=== PATIENT | male | born 1950 | race Caucasian/White ===

== ENCOUNTER 2024-12-14 19:26 | Emergency (ER) | payer MEDICARE, MEDICAID, SELFPAY ==
[2024-12-14 19:28] VITALS: BMI 41.1
--- NOTE | 2024-12-14 19:29 | EKG_ITS ---
[facility] (Formerly [facility]) Test Date: 2024-12-14 Pat Name: JOSE MIGUEL WASHINGTON Department: Room: - Gender: Male [employer] Room Attendant: : 1950 Requested By: ED Temporary Provider Order Number: [id number] Reading MD: ED Temporary Provider Measurements Intervals [place] Rate: 103 P: 51 AK: 154 QRS: 36 QRSD: 84 T: 26 QT: 331 QTc: 435 Interpretive Statements SINUS TACHYCARDIA LOW QRS VOLTAGE IN PRECORDIAL LEADS [QRS DEFLECTION < 1.0 mV IN CHEST LEADS] ABNORMAL RHYTHM ECG Compared to ECG 10/17/2023 10:00:57 Low QRS voltage now present ST (T wave) deviation no longer present /store/S0/[id number]/ecg/[id number].pdf
[2024-12-14 19:35] VITALS: BP 139/83; PULSE 110; RESP 20; TEMP 36.6; O2SAT 97
--- NOTE | 2024-12-14 19:46 | EDRME_ITS ---
Rapid Medical Screening Exam [facility] Arrival date/time: 12/14/24 19:26 Chief Complaint: Chest Pain Vital signs: Vital Signs Temperature 97.8 F 12/14/24 19:35 Pulse Rate 110 H 12/14/24 19:35 Respiratory Rate 20 12/14/24 19:35 Blood Pressure 139/83 H 12/14/24 19:35 Pulse Oximetry (%) 97 12/14/24 19:35 Oxygen Delivery Method Room Air 12/14/24 19:35 E Narrative: Left-sided chest pain, mild shortness of breath worsening over the past 4-5 days. History of PE, DVT. Patient takes Xarelto, reports compliance with med Exam: Well-appearing, no acute distress Clinical Impression: Chest pain
--- NOTE | 2024-12-14 19:47 | XR_ITS ---
EXAMINATION: PA chest single view TECHNIQUE: Upright PA chest single view Date and time: December 14, 20242010 hours INDICATIONS: Left-sided chest pain shortness of breath worse over the last 5 days. FINDINGS: Minimal prominence left ventricle Mild vascular congestion. Accentuation bronchovascular markings. No lobar pneumonia. No meir pulmonary edema IMPRESSION: Mild vascular congestion Basilar bronchitis pattern
--- NOTE | 2024-12-14 19:48 | XR_ITS ---
Examination: CTA chest with intravenous contrast 2-D reconstructions 3-D reconstructions, vascular Date and time of exam: December 14, 2024, 2113 hours INDICATIONS: Chest pain shortness of breath, history blood clots CTDI: vol (mGy) 26.2 DLP: (mGycm) 576 Technique: Multiple axial sections of the thorax have been obtained. 3 mm slice thickness, from below the hemidiaphragms to above the apices of the lungs. Mediastinal and lung density settings have been obtained. 2-D sagittal and coronal reconstructions. 3-D angiographic renderings, 3-D volume renderings, 3D post processing, vascular maximum intensity projections obtained. Contrast administered is 100 cc Isovue 370. Low dose protocols were performed. One or more of the following dose reduction techniques were used; automated exposure control, adjustment of the mA and/or KV according to patient size, use of iterative reconstruction technique. Findings: No thoracic aortic aneurysmal dilatation or dissection Pulmonary artery segments are not enlarged. No pulmonary artery emboli No paratracheal tracheobronchial or bronchopulmonary adenopathy No pneumonia or pulmonary edema or pleural disease No visualized liver or splenic lesion No gallstones No pancreatic or adrenal mass Moderate renal scar formation no hydronephrosis IMPRESSION: Negative for pulmonary artery emboli Negative for thoracic aortic aneurysm or dilatation No pneumonia or pulmonary edema or pleural disease
[2024-12-14 20:00] LABS: Basophils # (Auto) 0.1 Thou/mm3 (0.0-0.2); Basophils % (Auto) 1 % (0-2.5); Eosinophils # (Auto) 0.3 Thou/mm3 (0.0-0.5); Eosinophils % (Auto) 2 % (0-10); Hematocrit 42.0 % (41.0-53.0); Hemoglobin 14.0 g/dL (13.5-16.0); Immature Granulocytes Auto 0.02 Thou/mm3 (0.00-0.00); Lymphocytes # (Auto) 3.9 Thou/mm3 (1.0-4.8); Lymphocytes % (Auto) 30 % (10-50); Mean Corpuscular HGB Conc 33.3 g/dl (31.0-37.0); Mean Corpuscular Hemoglobin 28.7 pg (25.0-35.0); Mean Corpuscular Volume 86 fL (80-100); Monocytes # (Auto) 1.3 Thou/mm3 (0.0-0.8); Monocytes % (Auto) 10 % (0-12); Neutrophils # (Auto) 7.3 Thou/mm3 (1.8-7.7); Neutrophils % (Auto) 57 % (37-80); Nucleated Red Blood Cell # 0.00 Thou/mm3 (0.00-0.00); Nucleated Red Blood Cell % 0 /100 WBC (0); Platelet Count 293 Thou/mm3 (140-440); RDW Standard Deviation 44.8 fL (35.1-43.9); Red Blood Count 4.87 Miln/mm3 (4.50-5.90); White Blood Count 12.9 Thou/mm3 (3.8-10.6)
[2024-12-14 20:17] LABS: INR 1.1 (0.9-1.3); Partial Thromboplastin Time 36.2 Seconds (22.0-36.0); Prothrombin Time 11.9 Seconds (9.0-12.2)
[2024-12-14 20:20] LABS: B-Type Natriuretic Peptide 41 pg/mL (0-100)
[2024-12-14 20:22] LABS: Alanine Aminotransferase 15 U/L (10-49); Albumin, Serum 4.5 gm/dL (3.4-4.8); Albumin/Globulin Ratio 1.6 (1.2-2.2); Alkaline Phosphatase 75 U/L (46-116); Anion Gap 7 (7-16); Aspartate Amino Transferase 18 U/L (0-34); BUN/Creatinine Ratio 16 Ratio (12-20); Bilirubin,Total 0.2 mg/dL (0.3-1.2); Blood Urea Nitrogen 16 mg/dL (9-23); Calcium 9.5 mg/dL (8.3-10.6); Calcium (Corrected) 9.5 mg/dL (8.5-10.1); Carbon Dioxide 28.2 mMol/L (20.0-31.0); Chloride 106 mMol/L (98-107); Creatinine (Component) 1.0 mg/dL (0.6-1.3); Estimated Creatinine Clearance 93.2 mL/min (>60); Globulin 2.8 gm/dL (2.3-3.5); Glucose 108 mg/dL (74-106); Magnesium 2.1 mg/dL (1.6-2.6); Osmolality,Calculated 283 (275-295); Potassium 3.8 mMol/L (3.4-5.1); Sodium 141 mMol/L (136-145); Total Protein 7.3 gm/dL (5.7-8.2); Troponin I < 0.002 ng/mL (0.0-0.045); eGFR > 60 See Note
[2024-12-14 20:30] VITALS: BP 125/80; PULSE 98; RESP 20; TEMP 36.6; O2SAT 97
--- NOTE | 2024-12-14 20:39 | EDNOTE_ITS ---
ED Chest Pain RME/HPI General Chief Complaint: Chest Pain Stated Complaint: CHEST PAIN X 4 DAYS Time Seen by Provider: 12/14/24 20:26 Arrival date/time: 12/14/24 19:26 RME / HPI RME / HPI narrative: Left-sided chest pain, mild shortness of breath worsening over the past 4-5 days. History of PE, DVT. Patient takes Xarelto, reports compliance with med Dr. Dunn?s Main ED Evaluation: 74yo male with a history of PE on Xarelto presents to the ED for complaints of left-sided chest pain and mild shortness of breath x 4-5 days. No radiation or migration of pain. Patient states he has been taking his Xarelto as prescribed. Denies any fever, chills, abdominal pain, N/V, or any other associated symptoms. NKA. Related Data Home Medications ?Medication ?Instructions ?Recorded ?Confirmed levothyroxine 150 mcg tablet 150 mcg PO QDAY 10/03/22 10/03/22 lisinopril 20 1 tab PO QDAY 10/03/2210/03 mg-hydrochlorothiazide 25 mg tablet Previous Rx's ?Medication ?Instructions ?Recorded compress.stocking,knee,reg,lrg #2 ea 10/03/22 (Relief Knee Close Toe Stocking) rivaroxaban 15 mg (42)-20 mg (9) See Rx Instructions P O .COMPLEX 10/03/22 tablets in a starter pack (Xarelto #51 tabs DVT-PE Treatment 30-Day Starter) Allergies Allergy/AdvReac Type Severity Reaction Status Date / Time No Known Allergies Allergy Verified 12/14/24 19:27 Review of Systems Review of Systems Systems Reviewed: All systems reviewed, normal except as documented Past Medical History Past Medical History CARDIAC: Positive Hypertension; Negative Cardiac Disorders or Congestive Heart Failure RESPIRATORY: Positive Pulmonary Embolism; Negative Chronic Obstructive Pulmonary Disease (COPD) or Asthma GENITOURINARY: Negative Renal Disease ENDOCRINE: Positive Endocrine Disorders, Hypothyroidism and Parathyroid Disease; Negative Diabetes Mellitus Type 1 or Diabetes Mellitus Type 2 HEMATOLOGIC: Positive Clotting Problems; Negative Sickle Cell Disease Social History SMOKING STATUS: Never smoker ED Exam Narrative Physical exam: Generally patient is alert and in no obvious distress, heart regular rate and rhythm, lungs clear to auscultation equal bilaterally, chest shows no wounds no crepitance no subcu air nontender to palpation, abdomen soft bowel sounds present nondistended nontender, skin is warm and dry, neurologic exam shows Noemy Coma Scale 15 Course Quality Measures none Orders Category Date Time Status CT Screening NOW Care 12/14/24 19:48 Active EKG (ED ONLY) *Do not use* NOW Care 12/14/24 19:29 Completed Insert IV NOW Care 12/14/24 20:[address] angio chest Stat Exams 12/14/24 19:48 Completed CXR [XR chest 1V] Stat Exams 12/14/24 19:47 Completed EKG (ED Only) Stat Exams 12/14/24 19:29 Draft BNP [B-Type Natriuretic Peptide] Stat Lab 12/14/24 19:53 Completed CBC Stat Lab 12/14/24 19:53 Completed CMP [Comprehensive Metabolic Panel] Stat Lab 12/14/24 19:53 Completed Magnesium Stat Lab 12/14/24 19:53 Completed Partial Thromboplastin Time Stat Lab 12/14/24 19:53 Completed Prothrombin Time with INR Stat Lab 12/14/24 19:53 Completed Troponin I Stat Lab 12/14/24 19:53 Completed Vital Signs Vital signs: Vital Signs Temperature 97.8 F 12/14/24 19:35 Pulse Rate 110 H 12/14/24 19:35 Respiratory Rate 20 12/14/24 19:35 Blood Pressure 139/83 H 12/14/24 19:35 Pulse Oximetry (%) 97 12/14/24 19:35 Oxygen Delivery Method Room Air 12/14/24 19:35 Chest Pain MDM Narrative MDM Narrative:: Scribe Attestation: 12/14/24 Safia Keith am scribing for and in the presence of Dr. Dunn. Chest x-ray is unremarkable. EKG shows sinus tachycardia at a rate of 103 without ischemic change. Patient states that he has a well-established history of always been tachycardic. Patient does have a history of pulmonary emboli dating back 2 years ago. He is currently on Xarelto. CT scan of the chest with IV contrast showed no evidence of pulmonary emboli or acute disease process. Heart score is 3. Troponin is not elevated for chest pain that has been going on for 3 to 4 days. Patient is stable for discharge. Follow-up with his doctor. Continue current medications. Return to ER as needed or if condition worsens such as pain becomes more severe or more frequent or lasts longer. I interpreted all labs. Patient data External records reviewed:: [facility] previous records (Per chart review, patient was seen here on 10/17/23 for chest pain.) Clinical information provided by:: patient Social determinants that could affect healthcare access:: none Patient has the following chronic illnesses:: PE on Xarelto How is presenting disease/condition affected by chronic disease/condition?: uneffected by Evaluation data The following diagnostics were reviewed and interpreted by me:: lab results, radiology exam(s) and EKG tracing(s) Lab and/or radiology exams considered but not ordered:: none Interpretation Summary: [facility] Report Signed Patient: JOSE MIGUEL WASHINGTON [facility]. Record#: [id number] Birthdate: 1950 Age/Sex: 74 / M Location: [facility] Attending Dr: Ordering Physician: Antelmo Alcocer PA-C Date of Service: 12/14/24 Procedure(s): XR chest 1V Accession Number(s): [id number] cc: Stewart Akbar MD; Antelmo Alcocer PA-C; Jorje Verma PA-C~ EXAMINATION: PA chest single view TECHNIQUE: Upright PA chest single view Date and time: December 14, 20242010 hours INDICATIONS: Left-sided chest pain shortness of breath worse over the last 5 days. FINDINGS: Minimal prominence left ventricle Mild vascular congestion. Accentuation bronchovascular markings. No lobar pneumonia. No meir pulmonary edema IMPRESSION: Mild vascular congestion Basilar bronchitis pattern Dictated By: Stewart Akbar MD Signed By: <Electronically signed by Stewart Akbar MD in OV> 12/14/242041 [facility] Report Signed Patient: JOSE MIGUEL WASHINGTON [facility]. Record#: [id number] Birthdate: 1950 Age/Sex: 74 / M Location: [facility] Attending Dr: Ordering Physician: Antelmo Aloccer PA-C Date of Service: 12/14/24 Procedure(s): CT angio chest Accession Number(s): [id number] cc: Stewart Akbar MD; Antelmo Alcocer PA-C; Jorje Verma PA-C~ Examination: CTA chest with intravenous contrast 2-D reconstructions 3-D reconstructions, vascular Date and time of exam: December 14, 2024, 2114 hours INDICATIONS: Chest pain shortness of breath, history blood clots CTDI: vol (mGy) 26.2 DLP: (mGycm) 576 Technique: Multiple axial sections of the thorax have been obtained. 3 mm slice thickness, from below the hemidiaphragms to above the apices of the lungs. Mediastinal and lung density settings have been obtained. 2-D sagittal and coronal reconstructions. 3-D angiographic renderings, 3-D volume renderings, 3D post processing, vascular maximum intensity projections obtained. Contrast administered is 100 cc Isovue 370. Low dose protocols were performed. One or more of the following dose reduction techniques were used; automated exposure control, adjustment of the mA and/or KV according to patient size, use of iterative reconstruction technique. Findings: No thoracic aortic aneurysmal dilatation or dissection Pulmonary artery segments are not enlarged. No pulmonary artery emboli No paratracheal tracheobronchial or bronchopulmonary adenopathy No pneumonia or pulmonary edema or pleural disease No visualized liver or splenic lesion No gallstones No pancreatic or adrenal mass Moderate renal scar formation no hydronephrosis IMPRESSION: Negative for pulmonary artery emboli Negative for thoracic aortic aneurysm or dilatation No pneumonia or pulmonary edema or pleural disease Dictated By: Stewart Akbar MD Signed By: <Electronically signed by Stewart Akbar MD in OV> 12/14/24 7671 Medications / Prescriptions Medications or Prescriptions considered but not ordered:: none Medication administrations:: none Consultations Consultation(s) initiated? (list below): No Diagnosis Chest Pain Differential Diagnosis: other (See MDM) Most likely diagnosis given after review of the tests above:: see clinical impression below Admission Indicated Admission indicated?: not indicated Admission Request Was there a request for admission?: No Disposition Plan Disposition Plan: Discharge Discharge Attestation Discharge Attestation: The patient and all family members were given an opportunity to ask questions and understood the discharge instructions. Discharge instructions specifically effects, indications for sooner follow up or return to the emergency department, and the expected course of current diagnosis. Patient condition: Stable Discharge Plan Plan Patient Disposition: HOME (Self Care) Prescriptions/Referrals Prescriptions/Med Rec: No Action lisinopril-hydrochlorothiazide 20-25 mg Tablet 1 tab PO QDAY levothyroxine 150 mcg Tablet 150 mcg PO QDAY (DME) Relief Knee Close Toe Stocking Misc See Rx Instructions .Route Qty: 2 0RF Rx Instructions: As directed Xarelto DVT-PE Treat 30d Start 15 mg (42)- 20 mg (9) tablets,dose pack See Rx Instructions .ROUTE .COMPLEX Qty: 51 0RF Rx Instructions: take one-15 mg tablet twice daily for 21 days, then one-20 mg tablet once daily; must take with meal/food Referrals: Jorje Verma PA-C [Primary Care Provider, Emergency Medicine] - In 1 week Problem List Clinical Impression: Chest pain Patient/Caregiver Discharge Instructions Education Materials: ED Chest Pain, Uncertain Cause Additional Instructions: Return if chest pain becomes more severe becomes more frequent or lasts longer. Follow-up with your doctor. Continue current medications. Return to ER as needed or if condition worsens. Print Language: Bengali Stand Alone Forms: Aliyah Award Info., Patient Portal Info Letter
[2024-12-14 22:03] VITALS: BP 111/75; PULSE 90; RESP 18; TEMP 36.7; O2SAT 99
[2024-12-14 23:37] VITALS: BP 115/94; PULSE 92; RESP 18; TEMP 36.6; O2SAT 98
== END 2024-12-14 23:38 | disposition home or self-care (01) ==
PROVIDERS: Physician Assistant; Emergency Provider Emergency Medicine; PCP Physician Assistant
DX: J40 Bronchitis, not specified as acute or chronic (principal)
CPT/HCPCS: 36415; 71045; 71275; 80053; 83735; 83880; 84484; 85025; 85610; 85730; 93005; 99283; A4649; Q9967